=== PATIENT | female | born 1965 | race Caucasian/White ===

== ENCOUNTER 2019-04-20 08:58 | Day surgery (SDC) | payer OTHER ==
[~2019-04-20] VITALS: Ht 160.1 cm; Wt 83.4 kg
[2019-04-20] VITALS (7 sets, daily range): BP systolic 102–139; BP diastolic 68–85; PULSE 58–68; TEMP 98.1
[~2019-04-20 08:58] MED LIST: LIPITOR20 MG PO
[2019-04-20] MEDS ORDERED: VITAMIN D32000 IU PO (09:18)
[2019-04-20] MEDS ORDERED: LIPITOR 40MG TA40 MG PO (09:19)
--- NOTE | 2019-04-20 12:32 | NUR ---
ALL MEDICATIONS GIVEN VORB WITH MD. SEE MERGE FOR ALL MEDICATION ADMIN TIMES. SEE MERGE FOR ALL RASS ASSESSMENTS DURING AND POST PROCEDURE.
--- NOTE | 2019-04-20 13:20 | NUR ---
PT TO EU 10 VIA BED FROM PHARMACY CLINICAL SPECIALIST, INSTRUCTED PT WILL HAVE FLAT BEDREST FOR 1 HOUR, SITE TO RIGHT GROIN HAS 2X2, AREA IS SOFT AND CLEAN, PEDAL PULSES PRESENT. CALL LIGHT IN REACH, IN ROOM
--- NOTE | 2019-04-20 13:25 | NUR ---
Patient transported back to room 10 at this time. Patient alert and oriented, denies any pain. Patient hooked up to monitoring equipment. VS stable. Sharmila Pate RN at bedside. Visualized right femoral vein site. Dressing is clean, dry, and intact. No oozuing or hematoma noted. Pedal pulses +2 bilaterally. Discussed importance of bed rest and restrictions. Bed in locked and lowest position, call light within reach.
--- NOTE | 2019-04-20 13:50 | NUR ---
PT TAKES JUICE, DOZES AT TIMES, NO C/O, SITE TO RIGHT GROIN REMAINS THE SAME
--- NOTE | 2019-04-20 14:35 | NUR ---
PT TAKES JUICE, SITS UP IN BED, WATCHES TV. SITE TO RIGHT GROIN IS CLEAN AND DRY, NO SWELLING
--- NOTE | 2019-04-20 15:15 | NUR ---
REVIEWED DISCHARGE INST. WITH PT WHILE SITTING ON SIDE OF BED, WALKED IN ROOM, RIGHT GROIN SITE IS UNCHANGED. VERBAL UNDERSTANDING ON INST. WITH MODERATE SEDATION AND SITE CARE. INT D'CD INTACT. PT UP AND DRESSED, DISCHARGED VIA W/C TO CAR WITH
== END 2019-04-20 15:15 | disposition home or self-care (01) ==
LOC: COL.CAR 08:58
DX: Z86.711 Personal history of pulmonary embolism (principal); Z96.642 Presence of left artificial hip joint; Z90.710 Acquired absence of both cervix and uterus
CPT/HCPCS: C1880; C1894; J1644; J2250; J3010; J7120; Q9967

== ENCOUNTER → 2019-09-15 | Outpatient (CLI) | payer OTHER ==
[~2019-09-15] MED LIST changes: +LIPITOR 40MG TA40 MG PO; +VITAMIN D32000 IU PO
== END ==
LOC: COL.RAD 13:34
DX: S83.511A Sprain of anterior cruciate ligament of right knee, initial encounter (principal); M17.11 Unilateral primary osteoarthritis, right knee